=== PATIENT | male | born 1930 | race Caucasian/White ===

== ENCOUNTER → 2017-03-14 | Outpatient (CLI) | payer OTHER ==
[~2017-03-14] MED LIST: ASPI-482 PO; ATOR40TA59 PO; BUDE10.2 IH; FLUO40CR TP; HYDR-2758 PO; IOHEXOL 180 MG/ML 10 ML VIAL. ONE; ISOS30TA4 PO; LEVO25TA4 PO; LIDO30CR TP; LISI-338 PO; MELO15TA23 PO; METF500T4 PO; METO25TA4 PO; TAMS0.4C2 PO; TIOT18CA IH; TRIA15OI TP; methylPREDNISolone ACETATE 40 MG/ML VIAL. ONE; methylPREDNISolone ACETATE 80 MG/ML VIAL. ONE
--- NOTE | 2017-03-14 23:52 | PAIN ---
DATE OF SERVICE: 03/14/2017 INITIAL CONSULTATION FOR PAIN CLINIC CHIEF COMPLAINT: Low back and left lower extremity pain. HISTORY OF PRESENT ILLNESS: This is an 86-year-old male who presents with history of pain for about 6 months in the left anterior and lateral thigh between the groin and the knee, worse with standing, walking, changing positions, lying down exacerbates as well. Also, some pain in his feet and they feel cold, more on the left than the right. The patient reports the left leg gives out occasionally. The patient reports this has been going on for about 6 months, gradually increasing, not a result of any specific injury or accident that he is aware of, but it has been becoming progressively more noticeable. The patient reports no loss of function, but significant fatigability in the left leg. The patient reports intermittent in intensity, but always present, worse with activity, changes during the day with more activity, primarily bothersome when trying to lay down as well, shooting, sharp, constant, stabbing and throbbing, also an aching pain in the low back. The patient reports he has not had any current therapy. He has been doing some stretching on his own, but did have some chiropractic treatment about a month ago, which helped, but only temporarily. The patient is not taking any current medications except [id number] Tylenol, which does not help to a significant extent as well. The patient did have plain x-rays of his lumbar spine showing multilevel disk space narrowing at all levels, most severe at L2-L3 and L5-S1 with vacuum phenomenon at multiple levels in the disk spaces mildly extensive, marginal vertebral bodies spurs anterolaterally are noted throughout the thoracolumbar vertebrae, degenerative facet joint changes most prominent at L4-L5 and L5-S1. The patient rates his disability ranging from 0-10, 10 being the worst, as a 10 with occupation and life support activities. PAST MEDICAL HISTORY: Significant for type 2 diabetes, hearing aids, cataracts, COPD, cigarette smoking, history of chest pain and myocardial infarction, heart valve abnormalities, arthritis. PREVIOUS SURGERY: Include cataract extractions, bladder cancer resected about 2 months ago, appendectomy, previous bladder surgery in the past as well. FAMILY HISTORY: Significant for heart disease in a brother, cancer in a brother and in a sister. He is unsure what type of cancers. SOCIAL HISTORY: The patient does not drink. He smokes cigarettes still about 1 pack a day on average. The patient is retired and lives at his son's home on his property in [place], [place]. REVIEW OF SYSTEMS: The patient's review of systems is positive for those items mentioned in the history of present illness. All systems reviewed and otherwise negative. It is complete, full and well documented on the patient's chart. PHYSICAL EXAMINATION: VITAL SIGNS: Today, the patient's blood pressure is 136/75, pulse is 99, respirations 18, temperature 98.2 degrees Fahrenheit, height is 5 feet 7 inches, weight is 212 pounds. GENERAL: The patient is awake, alert, oriented, appropriate, very pleasant demeanor. HEENT: Head shows normocephalic, atraumatic. Extraocular movements are intact and symmetrical. Oral cavity shows mucous membranes are moist and pink. Dentition is intact. NECK: Shows anterior throat supple without palpable lymphadenopathy noted. Swallow reflex is symmetrical. CHEST: Shows normal on inspection. Breath sounds are clear to auscultation bilaterally. HEART: Shows S1 and S2 clear. No murmurs auscultated. ABDOMEN: Soft, nontender, nondistended. No palpable organomegaly is noted. No rebound or guarding demonstrated. BACK: Shows slight exaggeration of thoracic kyphosis, mild flattening of lumbar lordotic curvature. No previous bruises, lesions, rashes or scars are noted. The patient's lumbar paraspinous muscle shows symmetrical on inspection. On palpation shows some moderate tenderness in the lower distribution only, but only moderately and only to diffuse nature without radiation, without asymmetry, no trigger points, no tenderness over the sacrum or sacroiliac regions or the spinous processes. The patient shows good rotational motion of the lumbar spine both laterally greater than 10 degrees in the right and left as well as extension greater than 10 degrees, forward flexion at 45 degrees without pain reported. LOWER EXTREMITIES: Show deep tendon reflexes at 1+ in the patellar and tendo calcaneus tendons. Motor exam is strong with 5/5 dorsiflexion, extension, quadriceps and hamstring flexion and symmetrical. Peripheral pulses are 1+ posterior tibial and dorsalis pedis pulses. No peripheral edema is noted. No clubbing, no cyanosis. Lower extremities are warm and dry to touch, equal in color and appearance. Straight leg raise noted to be positive on the left at about 40 degrees. Right side is negative. Gaenslen's and Edmundo's maneuvers are grossly negative as well bilaterally. The patient is able to stand. He has difficulty to try to stand on his toes as he loses balance quickly. He has had significant limping gait favoring strongly the left lower extremity, but not using any assistive devices such as canes or walkers when he came in the office today. The patient's current medications are well documented on the patient's chart. ALLERGIES: The patient has no known drug allergies. IMPRESSION: 1. This is an 86-year-old male with approximately 6-month history of pain in the left lower extremity as well as across the low back, worse with activity in a radicular fashion. 2. Plain films of lumbar spine as noted. 3. Cigarette smoking. 4. Diabetes. 5. Arthritis. 6. Chronic obstructive pulmonary disease. PLAN: Options were discussed with the patient including conservative medical management, physical therapy and interventional techniques. He would like to pursue interventional techniques. We discussed a lumbar epidural steroid injection using description as well as anatomical models to describe the procedure. Risks were then discussed including, but not limited to bleeding, infection, possibility of epidural hematoma, subsequent neurologic compromise, dural puncture, headaches, spinal cord and/or nerve damage, side effects of steroid medication and poor results regarding pain control. The patient understands and wishes to proceed. The patient will return to the clinic in approximately 2 weeks for followup. He was counseled on return appointment, activity level and side effects to be aware of. DIAGNOSIS: Lumbar radiculopathy with lumbar degenerative disk disease. PROCEDURE: Lumbar epidural steroid injection in translaminar approach at the L2-L3 level using C-arm fluoroscopic guidance under sterile prep and drape using local anesthetic. Medication injected is a total of 120 mg of Depo-Medrol plus 10 mL of preservative-free normal saline, 2 mL of Isovue for contrast. CONDITION AT DISCHARGE: Stable. The patient tolerated the procedure well, had no complications. CELIO ALCALA MD DR: GABE/denny JOB#: [id number] / [id number] [facility] GARRET SALGADO MD
== END | disposition home or self-care (01) ==
LOC: PNCL 08:57
PROVIDERS: ATTEND Anesthesiology
DX: M51.16 Intervertebral disc disorders with radiculopathy, lumbar region (principal); E11.9 Type 2 diabetes mellitus without complications; F17.200 Nicotine dependence, unspecified, uncomplicated; J44.9 Chronic obstructive pulmonary disease, unspecified; Z98.41 Cataract extraction status, right eye; Z98.42 Cataract extraction status, left eye; Z98.890 Other specified postprocedural states
CPT/HCPCS: 62323; J1030; J1040

== ENCOUNTER → 2017-03-28 | Outpatient (CLI) | payer OTHER ==
[~2017-03-28] MED LIST changes: -IOHEXOL 180 MG/ML 10 ML VIAL. ONE; -methylPREDNISolone ACETATE 40 MG/ML VIAL. ONE; -methylPREDNISolone ACETATE 80 MG/ML VIAL. ONE
--- NOTE | 2017-03-28 18:29 | PAIN ---
DATE OF SERVICE: 03/28/2017 DIAGNOSES: Lumbar radiculopathy with lumbar degenerative disk disease. HISTORY OF PRESENT ILLNESS: The patient is an 86-year-old male who returns for followup status post lumbar epidural steroid injection x 1. On initial evaluation, patient reports about 85-90% better after the injection of the pain in his low back and left lower extremity. The patient reports it is much better. He has very little pain in his back and his left leg only with riding on an ATV or extended standing or walking more than about 2 hours the pain actually bother and the patient reports he has been sleeping well at night, increasing his activity with greater ease and comfort, and is very pleased with his progress. He has no new motor or sensory deficits, no new bowel or bladder incontinence or other complaints. The patient reports the pain is aching and dull occasionally into the left leg as it was previously, but only very minimally. The patient reports his pain at 2 on a scale of 10 on average, worst, and at least and is a 2 today. The patient reports no other complaints. PHYSICAL EXAMINATION: VITAL SIGNS: The patient's blood pressure is 139/75, pulse 64, respirations 18, temperature is 98.2 degrees Fahrenheit, height is 5 feet 7 inches, weight is 216 pounds. GENERAL: The patient is awake, alert, oriented, appropriate, very pleasant demeanor. HEENT: Head shows normocephalic, atraumatic. Extraocular movements are intact, symmetrical. Oral cavity: Mucous membranes moist and pink. Dentition is intact. NECK: Shows anterior throat supple without palpable lymphadenopathy noted. Swallow reflex symmetrical. Neck shows full rotational motion of the cervical spine. CHEST: Shows normal on inspection. Breath sounds are clear to auscultation bilaterally. HEART: S1, S2 clear. No murmurs auscultated. ABDOMEN: Obese, soft, nontender, nondistended. No palpable organomegaly. No rebound or guarding demonstrated. BACK: The patient's back shows spine grossly in the midline. Normal-appearing lumbar lordotic curvature with some mild flattening. Lumbar paraspinous muscle shows symmetrical on inspection, with palpation shows some moderate tenderness bilaterally, but only diffusely and only very minimally in the low lumbar distribution. No radiation. No tenderness over the sacrum or sacroiliac regions. The patient has good rotational motion of lumbar spine, both laterally as well as extension and flexion without difficulty. EXTREMITIES: Lower extremities show deep tendon reflexes 1+ in the patellar and tendo calcaneus tendons. Motor exam is strong with 5/5 dorsiflexion, extension, quadriceps and hamstring flexion and symmetrical. Peripheral pulses are 1+ posterior tibial. No peripheral edema is noted. PLAN: Options were discussed with the patient. We will hold on any further injections at this time as the patient is doing much better. We will have to increase his activity as tolerated. The patient also would like to have an MRI scan as he is concerned that something may be anatomically wrong in his low back. We discussed this, we will have orders sent with [facility] to obtain this for him and we will get that order sent today. The patient will follow up in approximately 2 weeks or as necessary, would like to wait and call to see how the activity does. The patient was encouraged to increase his activity as tolerated and maintain stretching and strengthening exercises, which we discussed as well. CELIO ALCALA MD DR: GABE/denny JOB#: [id number] / [id number]
== END | disposition home or self-care (01) ==
LOC: PNCL 09:35
PROVIDERS: ATTEND Anesthesiology
DX: M51.16 Intervertebral disc disorders with radiculopathy, lumbar region (principal)
CPT/HCPCS: G0463

== ENCOUNTER → 2017-06-12 | Outpatient (CLI) | payer OTHER ==
[~2017-06-12] MED LIST changes: -ASPI-482 PO; -ATOR40TA59 PO; -BUDE10.2 IH; -FLUO40CR TP; -HYDR-2758 PO; +IOHEXOL 180 MG/ML 10 ML VIAL.; -ISOS30TA4 PO; -LEVO25TA4 PO; -LIDO30CR TP; -LISI-338 PO; -MELO15TA23 PO; -METF500T4 PO; -METO25TA4 PO; -TAMS0.4C2 PO; -TIOT18CA IH; -TRIA15OI TP; +methylPREDNISolone ACETATE 40 MG/ML VIAL.; +methylPREDNISolone ACETATE 80 MG/ML VIAL.
== END | disposition home or self-care (01) ==
LOC: PNCL 07:44
DX: M51.16 Intervertebral disc disorders with radiculopathy, lumbar region (principal)
CPT/HCPCS: 62323; J1030; J1040; Q9965

== ENCOUNTER → 2017-07-17 | Outpatient (CLI) | payer OTHER | END | disposition home or self-care (01) | LOC: PNCL 09:59 | DX: M51.16 Intervertebral disc disorders with radiculopathy, lumbar region (principal) | CPT/HCPCS: 62323; J1030; J1040; Q9965 ==

== ENCOUNTER → 2018-01-30 | Outpatient (CLI) | payer OTHER ==
[~2018-01-30] MED LIST changes: +ASPI-482 PO; +ATOR40TA59 PO; +BUDE10.2 IH; +FLUO40CR TP; +HYDR-2758 PO; -IOHEXOL 180 MG/ML 10 ML VIAL.; +IOHEXOL 180 MG/ML 10 ML VIAL. ONE; +ISOS30TA4 PO; +LEVO25TA4 PO; +LIDO30CR TP; +LIDOCAINE 2% PF 2ML VIAL. ONE; +LISI-338 PO; +MELO15TA23 PO; +METF500T16 PO; +METO25TA4 PO; +TAMS0.4C2 PO; +TIOT18CA IH; +TRIA15OI TP; -methylPREDNISolone ACETATE 40 MG/ML VIAL.; +methylPREDNISolone ACETATE 40 MG/ML VIAL. ONE; -methylPREDNISolone ACETATE 80 MG/ML VIAL.; +methylPREDNISolone ACETATE 80 MG/ML VIAL. ONE
--- NOTE | 2018-01-30 22:53 | PAIN ---
DATE OF SERVICE: 01/30/2018 PROGRESS NOTE FOR PAIN CLINIC DIAGNOSES: Lumbar radiculopathy with lumbar degenerative disk disease and lumbar herniated disk. HISTORY OF PRESENT ILLNESS: The patient is an 87-year-old male who returns for followup status post lumbar epidural steroid injections x 3, most recently seen on 07/17/2017. The patient did very well with about 80% improvement for the first 3-4 weeks. After the injection, the pain began to return very slowly in the low back and the left lower extremity. The patient reports pain in the anterior aspect of the left thigh and across into the hip on the left side and across the low back on both sides; worse with standing, walking, changing positions. The patient reports the pain is a 10 on a scale of 10 at its worst, 5 on least and 6 at its average and is a 6 today. The patient reports it is a stabbing pain as sharp, radiating to the left leg where to give out on him once when he fell at the local [employer] because the left leg just gave out on him. The patient reports that he has been sleeping in a chair most nights. He has been unable to sleep in a bed for about the past month or so. The patient reports no new motor or sensory deficits and no new bowel or bladder changes or other complaints. PHYSICAL EXAMINATION: VITAL SIGNS: The patient's blood pressure 139/72, pulse 56, respirations 18 and temperature is 98.0 degrees Fahrenheit. Height is 5 feet 7 inches and weight is 211 pounds. GENERAL: The patient awake, alert, oriented, appropriate and very pleasant demeanor. HEENT: Head shows normocephalic and atraumatic. Extraocular movements are intact and symmetrical. Oral cavity, mucous membranes are moist and pink. Dentition is intact NECK: Shows anterior throat supple without palpable lymphadenopathy noted. Swallow reflex is symmetrical. CHEST: Shows normal on inspection. Breath sounds clear to auscultation bilaterally. HEART: Shows S1 and S2 clear. No murmurs auscultated. ABDOMEN: Soft, nontender and nondistended. No palpable organomegaly is noted. No rebound or guarding demonstrated. BACK: Shows spine grossly in the midline. Lumbar paraspinal musculature shows symmetrical on inspection, on palpation shows some moderate tenderness diffusely throughout the middle and lower distribution of the paraspinous muscles but only diffusely without radiation. No tenderness over the spinous processes, sacrum or sacroiliac regions. The patient has good rotation of motion both laterally as well as extension and flexion of the lumbar spine without difficulty. EXTREMITIES: Lower extremities show deep tendon reflexes at 1+ in the patellar and tendo-calcaneus tendons are equal. Motor exam is strong with 5/5 dorsiflexion, extension. Peripheral pulses are 1+ posterior tibia. No peripheral edema is noted. Options were discussed with the patient. The patient's old chart was reviewed as well as his current medication regimen updated. Current review of systems updated today as well. We will proceed with a lumbar epidural steroid injection first in the series with fluoroscopic guidance. Risks were again discussed including but not limited to bleeding, infection, possibility of epidural hematoma and subsequent neurologic compromise, dural puncture, headache, spinal cord and/or nerve damage, side effects of steroid medications, poor results regarding pain control. The patient understands and wished to proceed. The patient will return to the clinic in approximately 2 weeks for followup, was counseled as to return appointment, activity level and side effects to be aware of. DIAGNOSES: Lumbar radiculopathy, lumbar degenerative disk disease and lumbar herniated disk. PROCEDURE: Lumbar epidural steroid injection, translaminar approach at L2-L3 level using C-arm fluoroscopic guidance under sterile prep and drape using local anesthetic. MEDICATION INJECTED: A total of 120 mg Depo-Medrol plus 10 mL of preservative-free normal saline and 2 mL of Isovue for contrast. CONDITION AT DISCHARGE: Stable. The patient tolerated the procedure well and had no complications. CELIO ALCALA MD DR: GABE/denny JOB#: [id number] / [id number]
== END | disposition home or self-care (01) ==
LOC: PNCL 10:16
PROVIDERS: ATTEND Anesthesiology
DX: M51.16 Intervertebral disc disorders with radiculopathy, lumbar region (principal)
CPT/HCPCS: 62323; J1030; J1040; J2001; Q9965

== ENCOUNTER → 2018-02-13 | Outpatient (CLI) | payer OTHER ==
[~2018-02-13] MED LIST changes: +LIDOCAINE 1% PF 2 ML VIAL. ONE; -LIDOCAINE 2% PF 2ML VIAL. ONE
--- NOTE | 2018-02-13 22:36 | PAIN ---
DATE OF SERVICE: 02/13/2018 DIAGNOSES: Lumbar radiculopathy with lumbar degenerative disk disease, lumbar herniated disk. HISTORY OF PRESENT ILLNESS: The patient is an 87-year-old male, returns for followup status post lumbar epidural steroid injection x 1. The patient reports about 50% improvement, but only for about 3-4 days after the injection. The patient reports the pain is returning in the left leg, low back, radiating to the anterior thigh, anterior medial thigh, and medial knee. The patient reports it is a 3 on a scale of 10 on average at its least, is a 10 in the mornings, and a 10 with any activity until he gets up and around and gets going in the morning. The patient reports it is a sharp pain in the left leg as well as dull aching pain across the low back. The patient reports no new motor or sensory deficits. No new bowel or bladder incontinence or other complaints. The patient reports it is awakening him from sleep about every 5 hours or so. He can usually take pain medication and get to sleep without difficulty, but when he wakes up in the morning, it is back and he has been using a cane to get around in the mornings when he first gets up and puts weight on his left leg. PHYSICAL EXAMINATION: VITAL SIGNS: Today, the patient's blood pressure 120/61, pulse 64, respirations 18, temperature 98.1 degrees Fahrenheit, weight is 212 pounds. GENERAL: The patient is awake, alert, oriented, appropriate, very pleasant demeanor. HEENT: Shows normocephalic, atraumatic. Extraocular muscles are intact and symmetrical. Oral cavity: Mucous membranes moist and pink. Dentition is intact. NECK: Shows anterior throat supple without palpable lymphadenopathy noted. Swallow reflex is symmetrical. CHEST: Shows normal on inspection. Breath sounds clear to auscultation bilaterally. HEART: Shows S1, S2 clear. No murmurs auscultated. ABDOMEN: Soft, nontender, nondistended. No palpable organomegaly is noted. No rebound or guarding demonstrated. BACK: Shows spine grossly in the midline. Normal appearing thoracic kyphosis and lumbar lordotic curvature. Lumbar paraspinous muscle shows symmetrical on inspection. On palpation shows some moderate tenderness diffusely in the lumbar paraspinous musculature, but only diffusely without radiation, without atrophy, hypertrophy or trigger points. The patient has good rotational motion of lumbar spine, both laterally as well as extension and flexion without difficulty. EXTREMITIES: The patient's lower extremities show deep tendon reflexes 1+ in the patellar and tendo calcaneus tendons are equal. Motor exam is strong with 5/5 dorsiflexion, extension, quadriceps and hamstring flexion and symmetrical. Peripheral pulses are 1+ posterior tibia. No peripheral edema is noted. No clubbing or cyanosis. Options were discussed with the patient. The patient's old chart was reviewed as is his current medication regimen updated. Current review of systems is updated today as well. We will proceed with a lumbar epidural steroid injection today as a second in the series. Risks were again discussed including, but not limited to bleeding, infection, possibility of epidural hematoma and subsequent neurological compromise, dural puncture, headaches, spinal cord and/or nerve damage, side effects of steroid medication and poor results regarding pain control. The patient understands and wished to proceed. The patient will return to the clinic in approximately 2 weeks for followup, was counseled on return appointment, activity level and side effects to be aware of. DIAGNOSES: Lumbar radiculopathy with lumbar degenerative disk disease, lumbar herniated disk. PROCEDURE: Lumbar epidural steroid injection, translaminar approach at L2-L3 level using C-arm fluoroscopic guidance under sterile prep and drape using local anesthetic. MEDICATION INJECTED: A total of 120 mg Depo-Medrol plus 10 mL of preservative-free normal saline and 2 mL of Isovue for contrast. CONDITION ON DISCHARGE: Stable. The patient tolerated the procedure well, had no complications. CELIO ALCALA MD DR: GABE/denny JOB#: [id number] / [id number]
== END | disposition home or self-care (01) ==
LOC: PNCL 10:00
PROVIDERS: ATTEND Anesthesiology
DX: M51.16 Intervertebral disc disorders with radiculopathy, lumbar region (principal)
CPT/HCPCS: 62323; J1030; J1040; Q9965

== ENCOUNTER → 2018-02-27 | Outpatient (CLI) | payer OTHER ==
[~2018-02-27] MED LIST changes: -IOHEXOL 180 MG/ML 10 ML VIAL. ONE; -LIDOCAINE 1% PF 2 ML VIAL. ONE; -methylPREDNISolone ACETATE 40 MG/ML VIAL. ONE; -methylPREDNISolone ACETATE 80 MG/ML VIAL. ONE
--- NOTE | 2018-02-27 21:31 | PAIN ---
DATE OF SERVICE: 02/27/2018 PROGRESS NOTE FOR PAIN CLINIC DIAGNOSES: Lumbar radiculopathy with lumbar degenerative disk disease and lumbar herniated disk. HISTORY OF PRESENT ILLNESS: The patient is an 87-year-old male who returns for followup status post lumbar epidural steroid injection x 2. The patient reports about 50% improvement overall. Pain in the low back and left lower extremity. The patient reports that in the morning is really worst time that he has any pain in the low back or the leg. He has a pair of crutches that he has been using in the morning for about the first hour once he gets up and sits. He has a cup of coffee and has a few cigarettes and after about an hour to hour and a half, he can get up without the crutches and his pain is very minimal. The patient reports he has been doing this for about a month now and reports that he is having good success with it. Reports no new motor or sensory deficits and no new bowel or bladder incontinence or other complaints. Sleeps well at night, does not awaken him from better. He is better with activities after the first hour to 2 hours in the morning. The patient reports the pain is sharp and aching, dull, shooting into the left leg, occasionally in the morning only. The patient reports it is a dull ache across the back. The patient reports that his pain from 0-10, 10 being the worst, is a 10 on its worst, 3 at average, 3 at its least and again only in the morning in the first hour to hour and a half or so when the pain is exacerbated; otherwise, he is doing well throughout the rest of the day and evening. The patient reports no new motor or sensory deficits or other changes. It does not awaken him from sleep at night. PHYSICAL EXAMINATION: VITAL SIGNS: The patient's blood pressure 124/85, pulse 63, respirations 18, temperature 98.0 degrees Fahrenheit, height is 5 feet 7 inches and weight is 212 pounds. GENERAL: The patient is awake, alert, oriented, appropriate and very pleasant demeanor. HEENT: Head shows normocephalic and atraumatic. Extraocular movements are intact and symmetrical. Oral cavity: Mucous membranes are moist and pink. Dentition is intact. NECK: Shows anterior throat supple without palpable lymphadenopathy noted. Swallow reflex symmetrical. CHEST: Shows normal on inspection. Breath sounds are clear to auscultation bilaterally. HEART: Shows S1 and S2 clear. No murmurs are auscultated. ABDOMEN: Soft, nontender and nondistended. No palpable organomegaly is noted. No rebound or guarding demonstrated. BACK: Shows spine grossly in the midline. Normal-appearing thoracic kyphosis and lumbar lordotic curvature is slightly flattened. Lumbar paraspinous muscle shows symmetrical on inspection, on palpation shows some mild tenderness but only diffusely in the low lumbar distribution without radiation. The patient has good rotational motion of the lumbar spine, both laterally as well as extension and flexion without difficulty. No tenderness over the sacrum or sacroiliac regions. EXTREMITIES: Lower extremities show deep tendon reflexes 1+ in the patellar and tendo-calcaneus tendons are equal. Motor exam is strong with 5/5 dorsiflexion, extension and symmetrical. Peripheral pulses are 1+ posterior tibial. No peripheral edema is noted bilaterally. Options were discussed with the patient. The patient's old chart was reviewed as well as his current medication regimen updated. Current review of systems updated today as well. We will hold on any further injection at this time as the patient is currently doing fairly well and with the use of his crutches, he is doing quite well after the first hour and half in the morning. The patient will return to the clinic at this time on as needed basis. We discussed increasing his activity as tolerated. Make sure doing some stretching and strengthening exercises as he has been doing in the morning as well as walking as tolerated. CELIO ALCALA MD DR: GABE/denny JOB#: [id number] / [id number]
== END | disposition home or self-care (01) ==
LOC: PNCL 10:10
PROVIDERS: ATTEND Anesthesiology
DX: M51.16 Intervertebral disc disorders with radiculopathy, lumbar region (principal)
CPT/HCPCS: G0463